=== PATIENT | female | born 1965 | race African-American/Black ===

== ENCOUNTER 2018-12-16 09:40 | Inpatient (IN) | payer OTHER ==
--- NOTE | 2018-12-16 10:39 | RAD ---
EXAM: XR Abdomen 1 View/KUB PROVIDED CLINICAL HISTORY: Epigastric abdominal pain in a patient with gastric band in place. COMPARISON: None FINDINGS: Visualized lung bases are clear. A gastric band is noted in place and is oriented in the appropriate direction. Contrast is seen withi n the stomach and in the distal esophagus. Bowel gas pattern is otherwise nonspecific. Lower pelvis is obscured. IMPRESSION: Gastric band in place which does appear oriented in the appropriate direction. Contrast is seen in th e stomach.
--- NOTE | 2018-12-16 11:11 | ULT ---
Gallbladder ultrasound: Multiple grayscale images of right upper quadrant obtained according to protocol. INDICATION: Pain FINDINGS: Liver: Normal Gallbladder: Distended, with cholelithiasis Gallbladder wall: Normal. Kaiser's Sign: Negative Common bile duct is normal. Ascites: None IMPRESSION: Gallbladder distention with cholelithiasis.
[2018-12-16] MEDS ORDERED: Morphine 4 MG/ML VIAL ONE (11:19)
[2018-12-16] MEDS ORDERED: Ondansetron PF 4 MG/2 ML Vial ONE ×2 (11:19→14:10)
[2018-12-16] MEDS ORDERED: Ondansetron PF 4 MG/2 ML Vial IVP PRN ×2 (11:34→17:45)
[2018-12-16] MEDS ORDERED: Calcium Carbonate 500 MG ChewTAB PO PRN ×2 (11:34→17:45)
[2018-12-16] MEDS ORDERED: Dextrose 5% in Water 1,000 ML IV PRN ×2 (11:34→17:45)
[2018-12-16] MEDS ORDERED: Mag-Al 1200 mg/1200 mg/30 ML UDCUP PO PRN ×2 (11:34→17:45)
[2018-12-16] MEDS ORDERED: hydrALAZINE 20 MG/ML VIAL SLOW IVP PRN ×2 (11:34→17:45)
[2018-12-16] MEDS ORDERED: Morphine 4 MG/ML VIAL SLOW IVP PRN ×2 (11:34)
[2018-12-16] MEDS ORDERED: Promethazine HCl 25 MG/ML VIAL IM PRN ×2 (11:34→17:45)
[2018-12-16] MEDS ORDERED: Dextrose 50% Abboject 50 ML SYRINGE SLOW IVP PRN ×2 (11:34→17:45)
--- NOTE | 2018-12-16 12:12 | HP ---
CHIEF COMPLAINT: Mid epigastric and right upper quadrant pain. HISTORY OF PRESENT ILLNESS: The patient is a 53-year-old female, who had the acute onset of severe mid epigastric and right upper quadrant pain last night. She has had a history of a lap band placed about 7 years ago in [place]. She has been vomiting. PAST MEDICAL HISTORY: Significant for obesity. PAST SURGICAL HISTORY: She has had a hysterectomy. She had a lap band. She had a section. MEDICATIONS: 1. Prozac. 2. Protonix. ALLERGIES: NO KNOWN DRUG ALLERGIES. SOCIAL HISTORY: She is . She works in a [employer]. No tobacco or alcohol. FAMILY HISTORY: Heart disease and hypertension. PHYSICAL EXAMINATION: VITAL SIGNS: She is afebrile. Vital signs fine. GENERAL: She is a well-developed, well-nourished female, in pain. HEENT: No jaundice. LUNGS: Clear. HEART: Regular rate and rhythm. ABDOMEN: Soft. She has a port in her subxiphoid area. She is mildly tender in the right upper quadrant. Ultrasound shows cholelithiasis with a distended gallbladder. We did a limited upper GI that showed no evidence of slippage of the band. It is in appropriate position and contrast did traverse it. LABORATORY DATA: Her white count is 5.4, hemoglobin and hematocrit of 13 and 43, platelet count 319. Her glucose elevated at 129, AST 62. LFTs otherwise normal. Urinalysis showed some epithelial cells. ASSESSMENT: Severe biliary colic. PLAN: Admit laparoscopic cholecystectomy. CONSENT: I have discussed the planned procedure as well as risk of bleeding, infection, injury to bile duct, injury to bowel, need to open. She understands and gives informed consent. Job ID: [id number]
[2018-12-16] MEDS ORDERED: Ketorolac Tromethamine 30 MG/ML VIAL ONE (14:10)
[2018-12-16] MEDS ORDERED: Lidocaine 1% PF 5 ML VIAL ONE (14:10)
[2018-12-16] MEDS ORDERED: Succinylcholine Chloride 20 MG/ML 10 ml SYRINGE FS ONE (14:10)
[2018-12-16] MEDS ORDERED: Glycopyrrolate 0.2 MG/ML 5 ML SYRINGE ONE (14:10)
[2018-12-16] MEDS ORDERED: PROPOFOL 200 MG/20 ML VIAL ONE (14:10)
[2018-12-16] MEDS ORDERED: PHENYLEPHRINE-NS 100 MCG/ML 10 ML SYRINGE ONE (14:10)
[2018-12-16] MEDS ORDERED: Rocuronium Bromide 10 MG/ML (10ML VIAL) ONE (14:10)
[2018-12-16] MEDS ORDERED: ePHEDrine 50 MG/ML VIAL ONE (14:10)
[2018-12-16] MEDS ORDERED: Dexamethasone 20 MG/5 ML VIAL ONE (14:10)
[2018-12-16] MEDS ORDERED: cefOXitin 2 GM VIAL ONE (16:23)
[2018-12-16] MEDS ORDERED: Bupivacaine/Epinephrine 0.25% 30 ML VIAL ONE (16:23)
[2018-12-16] MEDS ORDERED: Sodium Chloride 0.9% 100 ML ONE (16:24)
[2018-12-16] MEDS ORDERED: Fentanyl 100 MCG/2 ML VIAL ONE ×3 (16:26→18:43)
[2018-12-16] MEDS ORDERED: HYDROcodone/Acetaminophen 10/325 mg Tablet PO PRN (17:45)
[2018-12-16] MEDS ORDERED: SUGAMMADEX SODIUM 200 MG/2 ML VIAL ONE (17:45)
[2018-12-16] MEDS: Lactated Ringer's 1,000 ML IV SCH ×2 (20:26→23:24)
[2018-12-16] MEDS: Famotidine 20 MG TAB PO SCH (20:27)
[2018-12-16] MEDS: Ketorolac Tromethamine 30 MG/ML VIAL IVP SCH ×2 (20:28→23:20)
[2018-12-16] MEDS: Famotidine/PF 20 mg/2ml Vial SLOW IVP SCH (20:29)
[2018-12-16] MEDS: Piperacillin/Tazobactam 3.375 GM in Sodium Chloride 0.9% 100 ML IVPB SCH ×2 (20:42→23:23)
[2018-12-16] MEDS ORDERED: Famotidine 20 MG TAB PO SCH (21:00)
[2018-12-16] MEDS ORDERED: Famotidine/PF 20 mg/2ml Vial SLOW IVP SCH (21:00)
[2018-12-16 22:18] VITALS: BMI 32.0
[2018-12-17] MEDS: Ketorolac Tromethamine 30 MG/ML VIAL IVP SCH ×4 (05:47→23:46)
[2018-12-17] MEDS: Piperacillin/Tazobactam 3.375 GM in Sodium Chloride 0.9% 100 ML IVPB SCH ×4 (05:48→23:46)
[2018-12-17 06:16] LABS: #Basophils 0.1 thou/uL (0.0-0.2); #Lymphocytes 1.9 thou/uL (1.20-3.40); #Monocytes 0.6 thou/uL (0.11-0.59); #Neutrophils 13.5 thou/uL (1.40-6.50); %Basophils 0.5 % (0.0-1.0); %Eosinophils 0.1 % (0.0-10.0); %Lymphocytes 11.7 % (21.0-51.0); %Monocytes 3.8 % (0.0-10.0); %Neutrophils 83.9 % (42.0-75.0); Hemoglobin 13.3 g/dL (12.0-16.0); Mean Corpuscular HGB CONC 31.8 g/dL (32.0-36.0); Mean Corpuscular Hemoglobin 29.6 pg (27.0-31.0); Mean Platelet Volume 6.6 fL (7.4-10.4); Platelet Count 328 thou/uL (130-400); RBC Distribution Width 11.7 % (11.5-14.5); Red Blood Cell (RBC) Count 4.49 mill/uL (4.20-5.40); White Blood Cell (WBC) Count 16.1 thou/uL (4.8-10.8)
[2018-12-17 06:44] LABS: ALT (SGPT) 43 U/L (8-55); AST (SGOT) 42 U/L (5-34); Albumin 4.1 g/dL (3.5-5.0); Alkaline Phosphatase 64 U/L (40-150); Anion Gap 12 mmol/L (10-20); BUN (Urea Nitrogen) 12 mg/dL (9.8-20.1); Bilirubin, Total 0.7 mg/dL (0.2-1.2); Calc. Creatinine Clearance 109 mL/min (70-130); Calcium 9.6 mg/dL (7.8-10.44); Carbon Dioxide 28 mmol/L (22-29); Chloride 102 mmol/L (98-107); Estimated GFR-MDRD 87; Globulin 4.3 g/dL (2.4-3.5); Glucose 108 mg/dL (70-105); Lipase 9 U/L (8-78); Potassium 3.9 mmol/L (3.5-5.1); Protein, Total 8.4 g/dL (6.0-8.3); Sodium 138 mmol/L (136-145)
[2018-12-17] MEDS: Famotidine/PF 20 mg/2ml Vial SLOW IVP SCH ×2 (08:59→20:10)
[2018-12-17] MEDS: Famotidine 20 MG TAB PO SCH ×2 (08:59→20:10)
[2018-12-17] MEDS: Enoxaparin Sodium 40 MG/0.4 ML SYRINGE SC SCH (08:59)
--- NOTE | 2018-12-17 10:22 | PRG ---
DATE OF SERVICE: 12/17/2018 SUBJECTIVE: The patient is still having some pain, but it is better. No nausea or vomiting. She is tolerating some diet. OBJECTIVE: VITAL SIGNS: Her temperature is 98.8, T-max was 99, pulse was 100 now 95, and blood pressure 108/61. GENERAL: She looks better. HEENT: No jaundice. LUNGS: Clear. ABDOMEN: Soft and nontender. A little bit of oozing from her umbilical incision. No distention. LABORATORY DATA: White count 16, hemoglobin and hematocrit of 13 and 41, and platelet count 328. Electrolytes, mild elevation of AST of 42. Otherwise, LFTs are fine. ASSESSMENT: Acute cholecystitis, improving. PLAN: Continue IV antibiotics, probably home tomorrow. Job ID: [id number]
[2018-12-17] MEDS: Lactated Ringer's 1,000 ML IV SCH ×2 (11:19→21:08)
--- NOTE | 2018-12-17 11:51 | OP ---
DATE OF PROCEDURE: 12/16/2018 PREOPERATIVE DIAGNOSIS: Acute cholecystitis. PROCEDURE PERFORMED: Laparoscopic cholecystectomy. INDICATIONS: This is a 53-year-old female, who has been having severe right upper quadrant pain radiating to back, associated with nausea. Ultrasound showed cholelithiasis. FINDINGS: Distended thickened walled gallbladder. DESCRIPTION OF PROCEDURE: After informed consent was obtained, the patient was taken to the operating room and given general endotracheal anesthesia, placed in the supine position. Abdomen was prepped and draped in usual fashion. Local anesthesia was infiltrated subcutaneously and deep and a subumbilical incision was performed. Subcu divided sharply. The fascia was grasped and 2 stay sutures of 0 Vicryl placed in each side of midline. Midline incised. Digital palpation revealed no local adhesions. A blunt 12 mm trocar was inserted. Pneumoperitoneum was created to a pressure of 15 mmHg. A 0-degree laparoscope was inserted under direct vision. Three 5 mm ports were placed subcostally. The gallbladder was grasped and advanced superiorly. The cystic duct and cystic artery were dissected out. The gallbladder was removed from its fossa utilizing electrocautery, removed from the abdomen through the umbilical port. Hemostasis assured. Trocars and retractors were removed. The fascia was closed with interrupted 0 Vicryl suture. The skin was closed with interrupted 4-0 Rapide. Dermabond applied. The patient tolerated the procedure well, transferred to Recovery in good condition. Sponge and needle count verified correct x2. Job ID: [id number]
[2018-12-17] MEDS: HYDROcodone/Acetaminophen 10/325 mg Tablet PO PRN (20:12)
[2018-12-18] MEDS: Lactated Ringer's 1,000 ML IV SCH (05:54)
[2018-12-18] MEDS: Ketorolac Tromethamine 30 MG/ML VIAL IVP SCH ×2 (05:56→11:36)
[2018-12-18] MEDS: Piperacillin/Tazobactam 3.375 GM in Sodium Chloride 0.9% 100 ML IVPB SCH ×2 (05:56→11:42)
[2018-12-18 07:56] VITALS: TEMP 98.3
[2018-12-18] MEDS: Enoxaparin Sodium 40 MG/0.4 ML SYRINGE SC SCH (08:14)
[2018-12-18] MEDS: Famotidine 20 MG TAB PO SCH (08:14)
[2018-12-18] MEDS: HYDROcodone/Acetaminophen 10/325 mg Tablet PO PRN (08:15)
[2018-12-18] MEDS: Famotidine/PF 20 mg/2ml Vial SLOW IVP SCH (09:48)
[2018-12-18 14:41] VITALS: BP 123/77
--- NOTE | 2018-12-19 02:42 | DIS ---
DATE OF ADMISSION: 12/16/2018 DATE OF DISCHARGE: 12/18/2018 DISCHARGE DIAGNOSIS: Acute cholecystitis. PROCEDURES DURING ADMISSION: Laparoscopic cholecystectomy. HOSPITAL COURSE: The patient was admitted, given IV fluids and IV antibiotics, taken to the operating room where she underwent a laparoscopic cholecystectomy. Postop, she feels much better. She is tolerating diet. Pain is controlled on p.o. medications. She is discharged home on hydrocodone and Zofran. She will follow up with me in 2 weeks. Job ID: [id number]
== END 2018-12-18 14:30 | disposition home or self-care (01) | DRG 419 ==
LOC: ERS 09:40 → SURG B 14:07 → SDC 14:14 → SURG B 19:23
PROVIDERS: ADMIT Surgery; ATTEND Surgery
PROC: 0FT44ZZ Resection of Gallbladder, Percutaneous Endoscopic Approach (ICD-10-PCS; principal; 2018-12-16)
DX: K80.42 Calculus of bile duct with acute cholecystitis without obstruction (principal); E66.9 Obesity, unspecified; Z90.710 Acquired absence of both cervix and uterus; Z98.84 Bariatric surgery status; Z68.32 Body mass index [BMI] 32.0-32.9, adult
CPT/HCPCS: 36415; 74018; 76705; 80053; 83690; 85025; 88304; 96361; 96374; 96375; J0694; J1100; J1885; J2001; J2270; J2405; J2543; J2704; J3010; J3490

== ENCOUNTER 2019-09-04 10:00 | Outpatient (CLI) | payer OTHER ==
--- NOTE | 2019-09-04 11:21 | ULT ---
Hepatic Doppler ultrasound: 09/04/2019 HISTORY: Hepatitis C TECHNIQUE: Multiplanar grayscale sonographic imaging of the upper abdomen with Doppler interrogation of the hepatic and splenic vasculature with color flow and spectral analysis FINDINGS: The visualized IVC and aorta appear within normal limits. Imaged pancreas appears grossly unremarkable. No focal liver lesion or intrahepatic biliary dilatatio n is seen. The left hepatic vein and portal vein, the middle hepatic vein, the right hepatic vein and right port al vein, and the main portal vein are patent and demonstrate normal directional flow. Hepatic artery is patent with a normal arterial waveforms documented. Gallbladder is surgically absent. Common bile duct measures 4 mm, within normal limits. Splenic artery and splenic vein are patent and demonstrate appropriate waveforms. The spleen is martha l in size. IMPRESSION: Hepatic Doppler ultrasound demonstrates patent hepatic and splenic vasculature with appro priate waveforms and normal directional flow pattern.
== END 2019-09-04 10:01 | disposition home or self-care (01) ==
LOC: SCSULT 10:00
PROVIDERS: ATTEND Internal Medicine
DX: B18.2 Chronic viral hepatitis C (principal)
CPT/HCPCS: 76705

== ENCOUNTER 2019-12-25 12:43 | Emergency (ER) | payer OTHER | END 2019-12-25 14:17 | disposition home or self-care (01) | LOC: ERS 12:43 | DX: U07.1 COVID-19 (principal); J02.9 Acute pharyngitis, unspecified; R51 Headache; F32.9 Major depressive disorder, single episode, unspecified; K21.9 Gastro-esophageal reflux disease without esophagitis | CPT/HCPCS: 99282 ==

== ENCOUNTER 2021-03-15 08:55 | Emergency (ER) | payer BC ==
[2021-03-15] MEDS ORDERED: Iopamidol-370 76% 500 ML 1 ML ONE (09:08)
[2021-03-15 09:36] LABS: #Basophils 0.1 thou/uL (0.0-0.2); #Eosinphils 0.1 thou/uL (0.0-0.7); #Lymphocytes 2.1 thou/uL (1.20-3.40); #Monocytes 0.1 thou/uL (0.11-0.59); #Neutrophils 4.6 thou/uL (1.40-6.50); %Basophils 1.1 % (0.0-1.0); %Eosinophils 1.3 % (0.0-10.0); %Lymphocytes 29.5 % (21.0-51.0); %Monocytes 1.8 % (0.0-10.0); %Neutrophils 66.4 % (42.0-75.0); Hemoglobin 14.9 g/dL (12.0-16.0); Mean Corpuscular Hemoglobin 30.2 pg (27.0-31.0); Mean Corpuscular Volume 91.6 fL (78.0-98.0); Mean Platelet Volume 6.4 fL (7.4-10.4); Platelet Count 330 thou/uL (130-400); RBC Distribution Width 12.3 % (11.5-14.5); Red Blood Cell (RBC) Count 4.92 mill/uL (4.20-5.40)
[2021-03-15 09:57] LABS: ALT (SGPT) 32 U/L (8-55); AST (SGOT) 37 U/L (5-34); Albumin 4.2 g/dL (3.5-5.0); Alkaline Phosphatase 105 U/L (40-110); Anion Gap 10 mmol/L (10-20); BUN (Urea Nitrogen) 9 mg/dL (9.8-20.1); Bilirubin, Total 0.8 mg/dL (0.2-1.2); Calc. Creatinine Clearance 0 mL/min (70-130); Calcium 9.6 mg/dL (7.8-10.44); Carbon Dioxide 31 mmol/L (22-29); Chloride 100 mmol/L (98-107); Globulin 4.9 g/dL (2.4-3.5); Glucose 119 mg/dL (70-105); Lipase 6 U/L (8-78); Potassium 3.8 mmol/L (3.5-5.1); Protein, Total 9.1 g/dL (6.0-8.3); Sodium 137 mmol/L (136-145)
[2021-03-15 10:07] LABS: Bilirubin Negative (Negative); Blood, Urine Negative (Negative); Clarity Turbid (Clear); Glucose, Urine (Dipstick) Normal (Negative); Ketone, Urine Negative (Negative); Leukocyte Negative Leu/uL (Negative); Nitrite Negative (Negative); Protein, Urine (Dipstick) Negative (Neg-Trace); Specific Gravity, Urine 1.015 (1.002-1.036); Urobilinogen Normal mg/dL (Less than 2)
[2021-03-15] MEDS ORDERED: Morphine 4 MG/ML VIAL ONE (11:25)
[2021-03-15] MEDS ORDERED: Ondansetron PF 4 MG/2 ML Vial ONE (11:26)
== END 2021-03-15 14:00 | disposition home or self-care (01) ==
LOC: ERS 08:55
DX: K44.9 Diaphragmatic hernia without obstruction or gangrene (principal); Z79.899 Other long term (current) drug therapy; K21.9 Gastro-esophageal reflux disease without esophagitis; I25.2 Old myocardial infarction
CPT/HCPCS: 36415; 74177; 80053; 81003; 83690; 85025; 96374; 96375; J2270; J2405; Q9967